=== PATIENT | male | born 1985 | race African-American/Black ===

== ENCOUNTER 2022-10-11 17:41 | Emergency (ER) | payer OTHER ==
[2022-10-11 17:50] VITALS: BP 119/78; PULSE 77; RESP 18; TEMP 98.1; BMI 60.4
[2022-10-11 20:08] LABS: BASO % 0.4 % (0-2.0); EOS % 1.2 % (0-4.5); HEMOGLOBIN 12.2 GM/dL (11.7-16.9); LYMPH % 19.1 % (8-40); MCH 23.2 pg (25.7-33.7); MEAN CELL VOLUME 72.6 fl (80-96); MEAN PLT VOLUME 8.7 fl (7.5-11.1); MONO % 8.7 % (3.8-10.2); NEUT % 70.6 % (42.8-82.8); PLATELET COUNT 227 10^3/uL (134-434); RBC 5.23 M/mm3 (4.00-5.60); RDW 15.3 % (11.9-15.9); WHITE BLOOD COUNT 6.2 K/mm3 (4.0-10.0)
[2022-10-11 20:11] LABS: EPI CELLS 22 /uL (0-25.1); HYALINE CASTS 21 /uL (0-3.1); PH,URINE 5.5 (5.0-8.0); URINE APPEARANCE TURBID; URINE BACTERIA >9,000 /uL (0-1359); URINE BILIRUBIN 1+ (NEGATIVE); URINE COLOR DK YELLOW; URINE GLUCOSE (UA) NEGATIVE (NEGATIVE); URINE KETONE TRACE (NEGATIVE); URINE LEUK ESTERASE 3+ (NEGATIVE); URINE NITRITE POSITIVE (NEGATIVE); URINE PROTEIN 3+ (NEGATIVE); URINE WBC 19469 /uL (0-25.8)
[2022-10-11 20:21] LABS: POTASSIUM 3.5 mmol/L (3.5-5.1)
[2022-10-11 20:24] LABS: ALBUMIN 3.8 g/dl (3.4-5.0); BLOOD UREA NITROGEN 17.3 mg/dL (7-18)
[2022-10-11 20:27] LABS: CREATININE 0.8 mg/dL (0.55-1.3)
[2022-10-11 20:29] LABS: BILIRUBIN,TOTAL 0.4 mg/dL (0.2-1); TOT PROT 7.8 g/dl (6.4-8.2)
[2022-10-11 21:11] LABS: YEAST NEGATIVE (NEGATIVE)
[2022-10-11] MEDS ORDERED: CEFUROXIME AXETIL 500 MG TABLET PO ONE (21:14)
== END 2022-10-11 22:03 | disposition home or self-care (01) ==
LOC: JER 17:41
DX: N30.91 Cystitis, unspecified with hematuria (principal)
CPT/HCPCS: 36415; 76775-TC; 76870-TC; 80053; 81003; 85025; 87086; 87186; 99284-25

== ENCOUNTER 2022-10-30 00:59 | Emergency (ER) | payer OTHER ==
[2022-10-30 01:04] VITALS: BP 127/88; PULSE 64; RESP 18; TEMP 98.7; BMI 26.6
[2022-10-30] MEDS ORDERED: ACETAMINOPHEN 325 MG TABLET (FP) PO ONE (02:40)
[2022-10-30 02:55] LABS: EPI CELLS 3 /uL (0-25.1); HYALINE CASTS 30 /uL (0-3.1); URINE APPEARANCE CLOUDY; URINE BACTERIA >9,000 /uL (0-1359); URINE BILIRUBIN NEGATIVE (NEGATIVE); URINE COLOR YELLOW; URINE GLUCOSE (UA) NEGATIVE (NEGATIVE); URINE KETONE TRACE (NEGATIVE); URINE LEUK ESTERASE 2+ (NEGATIVE); URINE NITRITE POSITIVE (NEGATIVE); URINE PROTEIN 1+ (NEGATIVE); URINE RBC 17 /uL (0-23.9); URINE WBC 546 /uL (0-25.8)
[2022-10-30] MEDS ORDERED: CEFTRIAXONE 1,000 MG in DEXTROSE 5%-WATER - 50 ML IVPB ONE (03:35)
[2022-10-30] MEDS ORDERED: CEFTRIAXONE 1 GM/50 ML BAG ONE (03:37)
[2022-10-30 04:03] LABS: BASO % 0.4 % (0-2.0); HEMATOCRIT 36.1 % (35.4-49); HEMOGLOBIN 11.5 GM/dL (11.7-16.9); LYMPH % 24.7 % (8-40); MCH 23.1 pg (25.7-33.7); MCHC 31.9 g/dl (32.0-35.9); MEAN CELL VOLUME 72.5 fl (80-96); MEAN PLT VOLUME 8.3 fl (7.5-11.1); MONO % 6.8 % (3.8-10.2); NEUT % 66.1 % (42.8-82.8); PLATELET COUNT 265 10^3/uL (134-434); RBC 4.97 M/mm3 (4.00-5.60); RDW 15.7 % (11.9-15.9); WHITE BLOOD COUNT 6.9 K/mm3 (4.0-10.0)
[2022-10-30 04:21] LABS: POTASSIUM 3.9 mmol/L (3.5-5.1)
[2022-10-30 04:23] LABS: ALBUMIN 3.7 g/dl (3.4-5.0); CALCIUM 9.1 mg/dL (8.5-10.1)
[2022-10-30 04:26] LABS: CREATININE 0.8 mg/dL (0.55-1.3)
[2022-10-30 04:29] LABS: BILIRUBIN,TOTAL 0.2 mg/dL (0.2-1); TOT PROT 7.3 g/dl (6.4-8.2)
== END 2022-10-30 05:56 | disposition home or self-care (01) ==
LOC: JER 00:59
DX: R31.9 Hematuria, unspecified (principal); N50.812 Left testicular pain; N49.2 Inflammatory disorders of scrotum; N43.3 Hydrocele, unspecified; N39.0 Urinary tract infection, site not specified
CPT/HCPCS: 36415; 74176-TC; 80053; 81003; 83605; 85025; 87086; 87186; 96365; 99284-25

== ENCOUNTER 2023-07-15 21:34 | Emergency (ER) | payer OTHER ==
[2023-07-15 21:39] VITALS: BP 124/85; PULSE 64; RESP 18; TEMP 98.2; BMI 27.3
[2023-07-16 00:49] LABS: EPI CELLS 1 /uL (0-25.1); HYALINE CASTS 2 /uL (0-3.1); PH,URINE 5.5 (5.0-8.0); URINE APPEARANCE CLEAR; URINE BACTERIA >9,000 /uL (0-1359); URINE BILIRUBIN NEGATIVE (NEGATIVE); URINE COLOR YELLOW; URINE GLUCOSE (UA) NEGATIVE (NEGATIVE); URINE KETONE TRACE (NEGATIVE); URINE LEUK ESTERASE 1+ (NEGATIVE); URINE NITRITE POSITIVE (NEGATIVE); URINE PROTEIN NEGATIVE (NEGATIVE); URINE RBC 12 /uL (0-23.9); URINE UROBILINOGEN 0.2 mg/dL (0.2-1.0); URINE WBC 196 /uL (0-25.8)
[2023-07-16] MEDS: CEFUROXIME AXETIL 500 MG TABLET PO ONE (01:29)
== END 2023-07-16 01:32 | disposition home or self-care (01) ==
LOC: JER 21:34 → JERFT 21:34
DX: N30.91 Cystitis, unspecified with hematuria (principal); R32 Unspecified urinary incontinence; R35.0 Frequency of micturition
CPT/HCPCS: 36415; 81003; 87086; 87186; 87491; 87591; 87661; 99283-25

== ENCOUNTER 2024-03-18 00:51 | Emergency (ER) | payer OTHER ==
[2024-03-18 01:01] VITALS: BP 122/74; PULSE 95; RESP 18; TEMP 99.5; BMI 27.3
[2024-03-18 01:46] LABS: EPI CELLS 1 /uL (0-25.1); HYALINE CASTS 1 /uL (0-3.1); URINE APPEARANCE CLOUDY; URINE BACTERIA >9,000 /uL (0-1359); URINE BILIRUBIN NEGATIVE (NEGATIVE); URINE COLOR YELLOW; URINE GLUCOSE (UA) NEGATIVE (NEGATIVE); URINE KETONE TRACE (NEGATIVE); URINE LEUK ESTERASE 1+ (NEGATIVE); URINE NITRITE POSITIVE (NEGATIVE); URINE PROTEIN NEGATIVE (NEGATIVE); URINE RBC 13 /uL (0-23.9); URINE WBC 244 /uL (0-25.8)
[2024-03-18] MEDS ORDERED: ACETAMINOPHEN 325 MG TABLET (FP) ONE (02:03)
[2024-03-18] MEDS: CEFPODOXIME PROXETIL 200 MG TABLET [NF] PO ONE (02:31)
[2024-03-18] MEDS: CEFPODOXIME PROXETIL 100 MG TABLET PO ONE (02:31)
[2024-03-18] MEDS: ACETAMINOPHEN 650 MG/20.3 ML ORAL SOLUTION (CUPS) PO ONE (02:31)
== END 2024-03-18 02:46 | disposition home or self-care (01) ==
LOC: JER 00:51
DX: R30.0 Dysuria (principal); N39.0 Urinary tract infection, site not specified; R10.9 Unspecified abdominal pain
CPT/HCPCS: 81003; 87086; 87186; 99283-25

== ENCOUNTER 2024-08-28 09:13 | Emergency (ER) | payer OTHER ==
[2024-08-28 09:22] VITALS: BP 115/77; PULSE 67; RESP 16; TEMP 98; BMI 25.0
[2024-08-28 10:27] LABS: EPI CELLS 1 /uL (0-25.1); HYALINE CASTS 2 /uL (0-3.1); URINE APPEARANCE CLEAR; URINE BACTERIA 3092 /uL (0-1359); URINE BILIRUBIN NEGATIVE (NEGATIVE); URINE COLOR YELLOW; URINE GLUCOSE (UA) NEGATIVE (NEGATIVE); URINE KETONE NEGATIVE (NEGATIVE); URINE LEUK ESTERASE 2+ (NEGATIVE); URINE NITRITE NEGATIVE (NEGATIVE); URINE PROTEIN TRACE (NEGATIVE); URINE RBC 31 /uL (0-23.9); URINE WBC 330 /uL (0-25.8)
[2024-08-28 12:12] LABS: HIV INTERPRETATION NEGATIVE (NEGATIVE)
== END 2024-08-28 10:51 | disposition home or self-care (01) ==
LOC: JER 09:13 → JERFT 09:13
DX: N39.0 Urinary tract infection, site not specified (principal); R10.30 Lower abdominal pain, unspecified
CPT/HCPCS: 36415; 81003; 86803; 87086; 87186; 87389; 99283-25

== ENCOUNTER 2025-03-22 22:25 | Emergency (ER) | payer OTHER ==
[2025-03-22 22:37] VITALS: BP 125/82; PULSE 88; RESP 20; TEMP 98.2; BMI 23.5
[2025-03-22 22:58] LABS: EPI CELLS 1 /uL (0-25.1); HYALINE CASTS 0 /uL (0-3.1); URINE APPEARANCE CLEAR; URINE BILIRUBIN NEGATIVE (NEGATIVE); URINE COLOR YELLOW; URINE GLUCOSE (UA) NEGATIVE (NEGATIVE); URINE KETONE NEGATIVE (NEGATIVE); URINE LEUK ESTERASE TRACE (NEGATIVE); URINE NITRITE POSITIVE (NEGATIVE); URINE PROTEIN NEGATIVE (NEGATIVE); URINE RBC 4 /uL (0-23.9); URINE UROBILINOGEN 0.2 mg/dL (0.2-1.0); URINE WBC 16 /uL (0-25.8)
[2025-03-22] MEDS ORDERED: NITROFURANTOIN MACROCRYSTAL 50 MG CAPSULE (FP) ONE (23:08)
[2025-03-22] MEDS: NITROFURANTOIN MACROCRYSTAL 50 MG CAPSULE (FP) PO SCH (23:09)
== END 2025-03-22 23:10 | disposition home or self-care (01) ==
LOC: JERFT 22:25 → JER 22:25
DX: N30.00 Acute cystitis without hematuria (principal)
CPT/HCPCS: 36415; 81003; 87086; 87491; 87591; 99283-25